=== PATIENT | female | born 1965 | race Asian ===

== ENCOUNTER 2018-08-23 | Emergency (ER) | payer OTHER ==
[~2018-08-23] VITALS: Ht 152.4 cm; Wt 74.8 kg
[~2018-08-23] MED LIST: SYN5 PO
[2018-08-23 00:11] VITALS: Ht 152.4 cm; Wt 74.8 kg
[2018-08-23 03:37] VITALS: BP 148/71
== END 2018-08-23 03:37 | disposition home or self-care (01) ==
LOC: ED
DX: S52.91XA Unspecified fracture of right forearm, initial encounter for closed fracture (principal); S52.201A Unspecified fracture of shaft of right ulna, initial encounter for closed fracture; S80.02XA Contusion of left knee, initial encounter; S80.211A Abrasion, right knee, initial encounter; J45.909 Unspecified asthma, uncomplicated; E03.9 Hypothyroidism, unspecified; Z90.710 Acquired absence of both cervix and uterus; W10.8XXA Fall (on) (from) other stairs and steps, initial encounter; Y93.89 Activity, other specified; Y92.89 Other specified places as the place of occurrence of the external cause; Y99.8 Other external cause status
CPT/HCPCS: J1885; Q0092